=== PATIENT | female | born 1935 | race Caucasian/White ===

== ENCOUNTER 2025-04-18 15:58 | Inpatient (IN) | payer OTHER, SELFPAY ==
[2025-04-18 11:00] VITALS: BP 128/68
--- NOTE | 2025-04-18 12:37 | ED.GENMED ---
History of Present Illness
General
Chief Complaint: Abdominal Pain
Time Seen by Provider: 04/18/25 12:26
History of Present Illness
History of Present Illness:
89-year-old female with history of colorectal cancer status post subtotal colectomy presents to the emergency department for evaluation of generalized abdominal pain and vomiting beginning last night. Unable to tolerate p.o. fluids and feels dizzy.
Pain is minimal at this time. No diarrhea. Other abdominal surgery includes cholecystectomy
Review of Systems
Review of Systems
Allergies reviewed?: Yes
All Other Systems: ROS reviewed and negative except as documented in HPI and ROS
Phy Exam
Physical Exam
Physical Exam:
GEN: Well appearing, NAD, WDWN
HEENT: Oral mucosa moist, no scleral icterus
Cardiac: Regular rate
Lung: No respiratory distress, no tachypnea
Abdomen: Soft, mild right lower quadrant tenderness, no rigidity or peritoneal signs
MSK: No gross deformity or injuries
Skin: Good color, no pallor or jaundice, no rashes
Neuro: AO x3, moves all extremities freely
Psych: Calm, cooperative
Course
Orders/Labs/Results
Orders:
Orders
04/18/25 12:35
CT Abd/Pel (IV only)-DH only Urgent
Comment:
Reason For Exam: epigastric pain/vomiting
0.9% Sodium Chloride 1000 ml [Nss] 1,000 ml IV BOLUS
Ondansetron Injectable [Zofran] 4 mg IV NOW STA
04/18/25 12:48
Complete Blood Count/With Diff Urgent
Comprehensive Metabolic Panel Urgent
Lipase Urgent
04/18/25 14:34
HYDROmorphone [Dilaudid] 0.25 mg IV NOW STA
04/18/25 15:40
Admit/Transfer Patient As Directed
Co-Sign Provider:
Level of Care: Inpatient admission
Assign to:: Medical/Surgical
Physician / Group: Chela
Diagnosis: Small Bowel Obstruction
Reason for Hospitalization: Small Bowel Obstruction
Expected length of stay greater than two midnights?: Yes
ELOS- Estimated Length of Stay in days: 3
I certify the patient meets the requirements for IP care: Yes
04/18/25 15:41
PRN Pain Medication Management As Directed
May give lesser potent ordered pain med per pt: Yes
preference::
Protocol:: Medication orders for pain may be administered in a
manner that supports deferring to patient preference
when the pt is:
- Requesting an ordered lesser potent pain medication.
Least to most potent pain medications are defined
as: acetaminophen < NSAID < tramadol < opioids
(morphine, oxycodone, hydromorphone).
- Requesting a lesser dose of the same medication IF
ORDERED.
- Requesting a less intrusive route of administration
if both routes are prescribed by the provider (PO <
IV).
04/18/25 15:43
Code Status As Directed
Resuscitation Status: Full Code
04/18/25 15:46
ECG [Electrocardiogram (*1)] Routine
Reason for Study: QTc Monitoring
Abnormal Lab Results
04/18/25
12:48
WBC 18.2 H 10^3/uL
(4.8-10.8)
Abs Immat Gran (auto) 0.1 H 10^3/uL
(0-0.05)
Absolute Neuts (auto) 15.7 H 10^3/uL
(1.4-6.5)
Absolute Lymphs (auto) 0.9 L 10^3/uL
(1.2-3.4)
Absolute Monos (auto) 1.5 H 10^3/uL
(0.1-0.6)
Neutrophils % 86.2 H %
(42.2-75.2)
Lymphocytes % 4.9 L %
(20.5-51.1)
BUN 30 H mg/dl
(7-17)
Glucose 138 H mg/dl
(70-99)
04/18/25 12:48
04/18/25 12:48
Vital Signs
Initial and Last Documented VS:
Initial Vital Signs
Temp Pulse Resp BP Pulse Ox
98.6 F 90 16 128/68 97
04/18/25 11:00 04/18/25 11:00 04/18/25 11:00 04/18/25 11:00 04/18/25 11:00
Last Documented Vital Signs
Temp Pulse Resp BP Pulse Ox
98.6 F 90 16 128/68 97
04/18/25 11:00 04/18/25 11:00 04/18/25 11:00 04/18/25 11:00 04/18/25 12:38
MDM/Problems Addressed
MDM/Problems Addressed:
Imaging identified small bowel obstruction. Patient has had this in the past and states that she does not want an NG tube thus will treat with IV fluids and bowel rest, admit to the hospital for further management
*Pulse Oximetry
SaO2: 97
Oxygen Mode of Delivery: Room air
Patient hypoxic: no
*Critical Care Note
Total Time (30-74mins, 75-104mins- exclusive of procedures): Not Applicable
ED Attending Note
-
Portions of this chart may have been created with voice recognition software.� Occasional wrong word or��sound alike� substitutions may have occurred due to the inherent limitations of voice recognition software.
Discharge Plan
Departure
Patient Disposition: Admit
Date of Disposition: 04/18/25
Time of Disposition: 15:18
Admit to: Med/Surg
Presentation/result/management discussed w/ accepting MD/DO: Hospitalist
Discharge Problem:
Complete small bowel obstruction
Interventions
Interventions:
*General Assessment Last Done: 04/18/25 10:52
*Neglect/Abuse Screening Last Done: 04/18/25 10:52
*ED- Fall Risk Assessment Last Done: 04/18/25 10:52
LV-Uldnom-Ymzbcvvzjh Assessment Last Done: 04/18/25 10:52
[2025-04-18] MEDS: NSS 1000 IV (12:49)
[2025-04-18 13:04] LABS: Hematocrit 40.7 % (37.0-47.0); Hemoglobin 13.5 g/dL (12.0-16.0); Mean Corp Hgb Conc. 33.2 g/dL (33.0-37.0); Mean Corpuscular Volume 85.0 fL (81.0-99.0); Nucleated Red Blood Cells % 0 %; Platelet Count 348 10^3/uL (130-400); Red Cell Dist. Width 13.8 % (11.5-14.5)
[2025-04-18 13:16] LABS: ALT (SGPT) 25 U/L (0-35); AST (SGOT) 31 U/L (14-36); Albumin 4.4 g/dl (3.5-5.0); Alkaline Phosphatase 96 U/L (38-126); Blood Urea Nitrogen 30 mg/dl (7-17); Calcium 9.8 mg/dl (8.4-10.2); Carbon Dioxide 27 mmol/L (22-30); Chloride 102 mmol/L (98-107); Glucose 138 mg/dl (70-99); Lipase 66 U/L (23-300); Potassium 4.4 mmol/L (3.5-5.1); Sodium 138 mmol/L (135-145); Total Protein 7.2 g/dl (6.3-8.2); eGFR > 60.00
[2025-04-18 15:00] VITALS: BP 152/71
[2025-04-18] MEDS: DILAUDID 0.25 MG IV (15:16)
--- NOTE | 2025-04-18 15:27 | HPS.HSE ---
Family Physician
-
Family Physician: Peri Gurrola
Chief Complaint
-
Abdominal Pain and Vomiting
History of Present Illness
Patient is an 89 y/o female past medical history of hypertension, hyperlipidemia, dementia and colorectal cancer s/p colon resection chemotherapy and radiaiton who presents with abdominal pain. Patient developed abdominal pain and vomiting last
night. Patient was unable to tolerate oral fluid this morning and reports associated dizziness. Family at bedside reports a prior episode of small bowel obstruction.
Medical History
Past Medical History
Past Medical History: Reports Other
Additional Past Medical History:
Essential Hypertension
Hyperlipidemia
Dementia / Short-Term Memory Impairment
Colorectal Cancer
Past Surgical History: Reports Other
Additional Past Surgical History:
Colon Resection
Cholecystectomy
Appendectomy
Social History
Tobacco: Non-smoker
Alcohol: None
Living: With Family
Family History
Family History: Not pertinent
Allergies / Home Medications
Allergies reflects when Allergies were last updated in [employer].
Home Medications with original date entered in [employer]
Allergy/Medication List:
Allergies
Allergy/AdvReac Type Severity Reaction Status Date / Time
oxycodone Allergy Nausea / Verified 04/18/25 11:00
Vomiting
Home Medications
acetaminophen 650 mg tablet,extended release (Tylenol 8 Hour) 1,300 mg PO Q8HPRN PRN MILD PAIN 04/18/25
aspirin 81 mg tablet,delayed release 81 mg PO MOWEFR 04/18/25
calcium carbonate (Tums) 200 mg PO QIDPRN PRN GERD 04/18/25
cholecalciferol (vitamin D3) 50 mcg (2,000 unit) tablet (Vitamin D3) 50 mcg PO DAILY 04/18/25
donepezil 10 mg tablet 10 mg PO HS 04/18/25
losartan 25 mg tablet 25 mg PO BID 04/18/25
magnesium L-threonate 48 mg magnesium (667 mg) capsule 96 mg PO DAILY 04/18/25
rosuvastatin 5 mg tablet (Crestor) 5 mg PO TUTHSA 04/18/25
Review of Systems
-
Unable to obtain full review of systems at this time due to: Language Barrier
Physical Exam
Vital Signs
Vital Signs
Temp Pulse Resp BP Pulse Ox
98.6 F 90 16 128/68 97
04/18/25 11:00 04/18/25 11:00 04/18/25 11:00 04/18/25 11:00 04/18/25 12:38
Physical Exam
General: Comfortable and Conversant
HEENT: Anicteric and Moist mucous membranes
Respiratory: Clear and Non Labored Respirations
Cardiac: S1/S2 and Regular Rhythm
GI: Soft and Other (Hypoactive bowel sounds; Tenderness to palpation on the left without rebound or guarding)
Rectal: Deferred by Provider
Genito-urinary: Clear Urine
Musculoskeletal: No Clubbing, No Cyanosis and No Edema
Skin: Warm and Dry
Neuro: Awake, Alert and Nonfocal/grossly intact
Psych: Calm
Laboratory Results
-
04/18/25 12:48
04/18/25 12:48
Laboratory Results
Total Bilirubin 0.7 mg/dl (0.2-1.3) 04/18/25 12:48
AST 31 U/L (14-36) 04/18/25 12:48
ALT 25 U/L (0-35) 04/18/25 12:48
Alkaline Phosphatase 96 U/L (38-126) 04/18/25 12:48
Lipase 66 U/L (23-300) 04/18/25 12:48
Data Reviewed
-
CT Scan: Report Reviewed by me
Lab Data: Labs Reviewed by me
Impression/Plan
-
Small Bowel Obstruction, likely secondary to adhesions from prior surgery
-Consult General Surgery
-Continue NPO/IVFs - Patient refused NG Tube
-Continue Zofran prn Nausea
-Continue Acetaminophen and Morphine prn Pain
Essential Hypertension
-Resume losartan when able to tolerate oral meds
Hyperlipidemia
-Resume Crestor when able to tolerate oral meds
Dementia / Short-Term Memory Impairment
-Resume donepezil when able to tolerate oral meds
-Monitor for mood/behavior changes during hospitalization
DVT proph: Lovenox
Code Status: Full Code
--- NOTE | 2025-04-18 15:41 | W.PN.UPDATE ---
Update Note
Progress Note Update
This is an addendum to the H&P written by Ivory Veronica on 04/18/2025. �Patient seen and examined independently with PA.
89-year-old female past medical history of colorectal cancer status post subtotal colectomy, cholecystectomy, prior appendectomy, hypertension, hyperlipidemia, vertigo, presented for abdominal pain and vomiting and dizziness.
Labs show leukocytosis.
CT abdomen pelvis shows small bowel obstruction with multiple fluid-filled dilated mid to distal small bowel loops and several decompressed/angulated loops of bowel within the distal ileum at the site of transition likely secondary to adhesions.
�There is small amount of fluid within the pelvis and mild to moderate mesenteric edema. �No pneumatosis or portal venous gas.
Patient with acute small bowel obstruction.
NPO. �IV fluids. �Patient refused NG tube. �General surgery consulted.
[2025-04-18 16:00] VITALS: BP 110/89
[2025-04-18 17:00] VITALS: BP 158/72
--- NOTE | 2025-04-18 18:21 | CON.GS ---
Consultation
-
Date/Time Consultation Performed: 04/18/25
Requesting Provider: Glenys
Performing Provider: Juan
Reason for Consultation: SBO
Medical History
-
Chief Complaint: Abd pain, n/v
History of Present Illness:
89F Puerto [place]ican speaker with 2 day hx of abd pain, reflux, progressive nausea and bilious vomiting. Last emesis today at around 2PM. She has been eating cherries the last few days. Hx of CRC s/p MIS resection with adjuvant chemo XRT at [place]. Prior to
2019 was admitted to [facility] with SBO managed non-op successfully. Denies f/c. Reports passing small flatus. Unsure last BM. C/o reflux type burning retrosternal pain. Mild dementia, daughter translates and helps with history
Past Medical History
Past Medical History: Other (Essential Hypertension Hyperlipidemia Dementia / Short-Term Memory Impairment Colorectal Cancer )
Past Surgical History: Other (Colon Resection Cholecystectomy Appendectomy)
Social History
Tobacco: Non-Smoker
Alcohol: None
Living: With Family
Family History
Family History: Reviewed & Noncontributory
Allergies / Home Medications
Allergy/AdvReac Type Severity Reaction Status Date / Time
oxycodone Allergy Nausea / Verified 04/18/25 11:00
Vomiting
�Medication �Instructions �Recorded �Confirmed �Type
acetaminophen 650 mg 1,300 mg PO Q8HPRN PRN MILD PAIN 04/18/25 04/18/25 History
tablet,extended release (Tylenol 8
Hour)
aspirin 81 mg tablet,delayed 81 mg PO MOWEFR 04/18/25 04/18/25 History
release
calcium carbonate (Tums) 200 mg PO QIDPRN PRN GERD 04/18/25 04/18/25 History
cholecalciferol (vitamin D3) 50 50 mcg PO DAILY 04/18/25 04/18/25 History
mcg (2,000 unit) tablet (Vitamin
D3)
donepezil 10 mg tablet 10 mg PO HS 04/18/25 04/18/25 History
losartan 25 mg tablet 25 mg PO BID 04/18/25 04/18/25 History
magnesium L-threonate 48 mg 96 mg PO DAILY 04/18/25 04/18/25 History
magnesium (667 mg) capsule
rosuvastatin 5 mg tablet (Crestor) 5 mg PO TUTHSA 04/18/25 04/18/25 History
Review of Systems
-
A 10 point review of systems was completed, and was negative except as per HPI.
Physical Exam
Vital Signs
Temp Pulse Resp BP Pulse Ox
98.6 F 90 16 128/68 97
04/18/25 11:00 04/18/25 11:00 04/18/25 11:00 04/18/25 11:00 04/18/25 12:38
04/17/25 04/18/25 04/19/25
06:59 06:59 06:59
Actual Weight 65.3 kg
Lab Results
04/18/25 12:48
04/18/25 12:48
WBC 18.2 10^3/uL (4.8-10.8) H 04/18/25 12:48
Hgb 13.5 g/dL (12.0-16.0) 04/18/25 12:48
Hct 40.7 % (37.0-47.0) 04/18/25 12:48
Plt Count 348 10^3/uL (130-400) 04/18/25 12:48
Abs Immat Gran (auto) 0.1 10^3/uL (0-0.05) H 04/18/25 12:48
Neutrophils % 86.2 % (42.2-75.2) H 04/18/25 12:48
Physical Exam
General: Well Developed, Well Nourished and No Apparent Distress
GI: Soft, Non Distended and Tender (mild ttp worst at RLQ, less to LLQ)
Skin: Warm and Dry
Neuro: AO x 3
Psych: Calm
Data Reviewed
-
CT Scan: Image Personally Visualized and interpreted, Report Reviewed by me, Discussed with Patient and Discussed with Family
Labs: Labs Reviewed by me, Discussed with Patient and Discussed with Family
Assessment / Plan
-
89F with SBO likely 2/2 adhesions in setting of dietary indiscretion
AFVSS, mild ttp mostly to RLQ, soft belly
WBC 18K
CT with dilated proximal sb loops, decompressed distal sb in the pelvis tracking to cecum, stool in cecum, no pneumatosis, no PV gas, no free air
Refusing NGT 2/2 bad experience prior SBO admission years ago at [facility]
Plan:
Admit to Hospitalist
Rec NGT, pt refused, if vomiting recurs would strongly recommend
IVF
NPO
Ambulate
DVT ppx
PRN pain meds / antiemetics
IV PPI
[2025-04-18 20:21] VITALS: BP 178/91
--- NOTE | 2025-04-18 21:00 | PTCARENOTE ---
Pt transported from ED to 3W via stretcher. Pt was a pullover from stretcher to bed, however is able to ambulate w/ 1 assist. Pt AAOX3 (hx of dementia) can be forgetful/confused @ baseline. Pt south sudanese speaking, daughter at bedside translating, pt
oriented to room, call proctor within reach. Vitals stable, pt pleasant and cooperative.
[2025-04-18] MEDS: LOVENOX 40 MG SC (21:29)
[2025-04-18] MEDS: D5/0.45%NSS with KCL 10 MEQ 1000 IV (21:30)
[2025-04-18] MEDS: NSS (PRESERVATIVE FREE) 10 ML IV (21:32)
[2025-04-18] MEDS: PROTONIX IV 40 MG IV (21:32)
[2025-04-18] MEDS: ZOFRAN 4 MG IV (21:39)
[2025-04-18] MEDS: MORPHINE SULFATE 1 MG IV (21:40)
[2025-04-18 22:40] VITALS: BP 140/69
[2025-04-19] MEDS: MORPHINE SULFATE 1 MG IV (06:19)
[2025-04-19 07:02] LABS: Hematocrit 36.9 % (37.0-47.0); Hemoglobin 12.5 g/dL (12.0-16.0); Mean Corp Hgb Conc. 33.9 g/dL (33.0-37.0); Mean Corpuscular Volume 85.4 fL (81.0-99.0); Platelet Count 331 10^3/uL (130-400); Red Cell Dist. Width 14.0 % (11.5-14.5)
[2025-04-19 07:17] LABS: Blood Urea Nitrogen 28 mg/dl (7-17); Calcium 8.8 mg/dl (8.4-10.2); Carbon Dioxide 26 mmol/L (22-30); Chloride 106 mmol/L (98-107); Estimated Creatinine Clearance 56 ml/min; Glucose 127 mg/dl (70-99); Magnesium 2.3 mg/dl (1.6-2.3); Potassium 4.2 mmol/L (3.5-5.1); Sodium 136 mmol/L (135-145); eGFR > 60.00
[2025-04-19 07:30] VITALS: BP 144/60
--- NOTE | 2025-04-19 07:48 | W.PN.HOSP.TC ---
Today's Communication/Plan
-
see PN
Assessment / Plan
Assessment / Plan
89yo F witgh PMHx of dementia, HLD, ASCVD, Hx of abd surgery 2/2 colon CA resection and recurrent SBO, last one few years ago came with abd dyscomphost and found SBO
A/P:
#SBO
NPO and advance diet when resolved
IVF
Follow electrolytes
CT: distal ileum - adhesions related obstruction
GEnSx consult
#Dementia, unspecified
frequent reorientation
#EssentIal HTN
Use IV meds while NPI, restart home meds when possible
#HLD
#ASCVD
no stents as per daughter, no Hx of ACS
hold meds
#leukocytosis on admission
resolved
most liekyl stress related
DVT ppx SCDs
Full code
I have spent at least 58min reviewing chart, test results, communication with family and providing direct patient care
Anticipated Discharge: > 48 hours
Subjective/Interval History
-
Date of Service: April 19, 2025
Objective Data
-
Labs:
Laboratory Results
04/19/25
06:32
WBC 10.0
Hgb 12.5
Hct 36.9 L
Plt Count 331
Sodium 136
Potassium 4.2
Chloride 106
Carbon Dioxide 26
BUN 28 H
Creatinine 0.6
Glucose 127 H
Calcium 8.8
Vital Signs:
Vital Signs
Temp Pulse Resp BP Pulse Ox
99.2 F 81 14 140/69 98
04/18/25 22:40 04/18/25 22:40 04/18/25 22:40 04/18/25 22:40 04/18/25 22:40
Review of Systems
-
History Source: Patient
All other systems: Reviewed and negative
Abdomen/GI: Reports Nausea
Physical Exam
-
General: No Apparent Distress
HEENT: Normocephalic
Respiratory: Clear to Auscultation
Cardiac: Regular Rhythm
GI: Soft, Nontender and Nondistended
Musculoskeletal: No Clubbing, No Cyanosis and No Edema
Neuro: Awake, Alert, Oriented and AO x 3
Psych: Calm and Apparent Dementia
[2025-04-19] MEDS: D5/0.45%NACL 500 IV ×3 (08:00→21:20)
[2025-04-19] MEDS: PROTONIX IV 40 MG IV (09:25)
[2025-04-19] MEDS: NSS (PRESERVATIVE FREE) 10 ML IV (09:25)
[2025-04-19] MEDS: DILAUDID 0.5 MG IV (10:20)
--- NOTE | 2025-04-19 12:04 | W.PN.GS2 ---
Today's Communication / Plan
-
NPO
Assessment / Plan
-
89 yo female with h/o dementia, rasta, prior MIS resection with adjuvant chemo XRT at [place], SBO in 2019 which resolved with nonoperative measures presenting with SBO likely secondary to adhesions
AFVSS
Leukocytosis resolved
Not yet passing flatus, pain persists
KUB with persistent obstruction, SB distention does not appear worsened
Plan:
Keep NPO
Refusing NGT, would likely not tolerate well
Checked KUB today
Analgesic dosing increased
Antiemetics prn
IVF as per primary team
Will continue to follow for improvement with nonoperative measures (fluids, analgesics, bowel rest)
Subjective Data
-
Date of Service: April 19, 2025
Pt seen and examined at bedside with daughter present. C/o pain, uncomfortable appearing. Confusion at baseline. anxious. Denies nausea currently but did have some overnight. Not passing flatus.
Objective Data
-
Intake and Output
04/18/25 04/19/25 04/20/25
06:59 06:59 06:59
Other:
Number of approximated MODERATE 2
amounts of urine
Vital Signs
Temp Pulse Resp BP Pulse Ox
98.3 F 81 18 144/60 96
04/19/25 07:30 04/19/25 07:30 04/19/25 07:30 04/19/25 07:30 04/19/25 07:30
Lab Results
04/19/25 06:32
04/19/25 06:32
Calcium 8.8 mg/dl (8.4-10.2) 04/19/25 06:32
Magnesium 2.3 mg/dl (1.6-2.3) 04/19/25 06:32
Total Bilirubin 0.7 mg/dl (0.2-1.3) 04/18/25 12:48
AST 31 U/L (14-36) 04/18/25 12:48
ALT 25 U/L (0-35) 04/18/25 12:48
Alkaline Phosphatase 96 U/L (38-126) 04/18/25 12:48
Total Protein 7.2 g/dl (6.3-8.2) 04/18/25 12:48
Albumin 4.4 g/dl (3.5-5.0) 04/18/25 12:48
Physical Exam
-
Uncomfortable appearing, anxious
Abd softly distended, generalized tenderness L>R, CL[employer]ER
--- NOTE | 2025-04-19 13:12 | CM ---
Patient seen at bedside with daughter Radha
IA completed, via daughter (patient Guamanian speaking)
Dx: SBO
NPO, IVF
PMH: dementia, rasta, prior MIS resection with adjuvant chemo XRT at [facility] in 2019
Patient lives with her daughter & her family in a 2 story home, 1st floor set up with bedroom/full bathroom
PLOF: Independent, daughter states without assistive device
DME: Walker, cane, shower chair
Daughter states she is a paid caregiver through [employer] , she states she works there.
PCP: Peri Gurrola
Pharmacy: [facility]
PLAN: anticipate home, with daughter as caregiver through [employer] when stable
[2025-04-19 15:00] VITALS: BP 142/67
[2025-04-19] MEDS: LOVENOX 40 MG SC (17:46)
[2025-04-19] MEDS: DILAUDID 0.25 MG IV (21:29)
[2025-04-19] MEDS: ZOFRAN 4 MG IV (21:30)
[2025-04-19 23:00] VITALS: BP 139/52
[2025-04-20] MEDS: D5/0.45%NACL 500 IV ×2 (03:51→11:05)
[2025-04-20 07:13] VITALS: BP 155/68
[2025-04-20 07:51] LABS: Blood Urea Nitrogen 16 mg/dl (7-17); Calcium 7.8 mg/dl (8.4-10.2); Carbon Dioxide 26 mmol/L (22-30); Chloride 108 mmol/L (98-107); Estimated Creatinine Clearance 56 ml/min; Glucose 107 mg/dl (70-99); Magnesium 2.1 mg/dl (1.6-2.3); Potassium 3.7 mmol/L (3.5-5.1); Sodium 136 mmol/L (135-145); eGFR > 60.00
[2025-04-20] MEDS: NSS (PRESERVATIVE FREE) 10 ML IV (08:32)
[2025-04-20] MEDS: PROTONIX IV 40 MG IV (08:32)
[2025-04-20] MEDS: CALCIUM GLUCONATE 100 IV (08:57)
--- NOTE | 2025-04-20 10:35 | W.PN.GS2 ---
Today's Communication / Plan
-
NGT today.
Asked nursing to document if any bowel function.
Assessment / Plan
-
89 yo female with h/o dementia, rasta, prior MIS resection with adjuvant chemo XRT at [place], SBO in 2019 which resolved with nonoperative measures presenting with SBO likely secondary to adhesions
AFVSS
Leukocytosis resolved
Not yet passing flatus, pain persists but improved.
KUB with dilated small bowel loops, no free air (x-rays reviewed).
Plan:
More receptive to an NGT today
No indication for acute intervention. Might need repeat CT at some point as she is difficult to gauge given her dementia.
Last analgesic dose last night
Antiemetics prn
IVF as per primary team
Will continue to follow for improvement with nonoperative measures (fluids, analgesics, bowel rest.NGT)
Subjective Data
-
Date of Service: April 20, 2025
Less pain today. No bowel function recorded.
Objective Data
-
Intake and Output
04/19/25 04/20/25 04/21/25
06:59 06:59 06:59
Intake Total 900 / 900
Balance 900 / 900
Intake:
Oral fluids 0 / 0
IV fluids (Total) 900 / 900
Other:
Number of approximated MODERATE 2
amounts of urine
Number of approximated LARGE 7 1
amounts of urine
Vital Signs
Temp Pulse Resp BP Pulse Ox
98.1 F 69 18 155/68 96
04/20/25 07:13 04/20/25 07:13 04/20/25 07:13 04/20/25 07:13 04/20/25 07:13
Lab Results
04/19/25 06:32
04/20/25 06:46
Calcium 7.8 mg/dl (8.4-10.2) L 04/20/25 06:46
Phosphorus 2.8 mg/dl (2.5-4.5) 04/20/25 06:46
Magnesium 2.1 mg/dl (1.6-2.3) 04/20/25 06:46
Total Bilirubin 0.7 mg/dl (0.2-1.3) 04/18/25 12:48
AST 31 U/L (14-36) 04/18/25 12:48
ALT 25 U/L (0-35) 04/18/25 12:48
Alkaline Phosphatase 96 U/L (38-126) 04/18/25 12:48
Total Protein 7.2 g/dl (6.3-8.2) 04/18/25 12:48
Albumin 4.4 g/dl (3.5-5.0) 04/18/25 12:48
Physical Exam
-
NAD
Abdomen softly distended with bowel sounds. Nontender.
--- NOTE | 2025-04-20 11:20 | CM ---
Patient chart reviewed
NGT today
PLAN: anticipate home, with daughter as caregiver through [facility] when stable
--- NOTE | 2025-04-20 12:00 | W.PN.HOSP.TC ---
Addendum entered and electronically signed by Sascha Krishnan MD 04/20/25 12:05:
attempted NG tube placement - patient did not tolerate
Original Note:
Today's Communication/Plan
-
no BS
conflicting info on BM from RN, but patient did not report any
Replete Ca, follow electrolyts in AM
rest of the mgmt as per surgery
Assessment / Plan
Assessment / Plan
89yo F witgh PMHx of dementia, HLD, ASCVD, Hx of abd surgery 2/2 colon CA resection and recurrent SBO, last one few years ago came with abd dyscomphost and found SBO
A/P:
#SBO
NPO and advance diet when resolved
IVF
Follow electrolytes
CT: distal ileum - adhesions related obstruction
GEnSx consult
#Dementia, unspecified
frequent reorientation
#Hypocalcemia
replete
#Essential HTN
Use IV meds while NPI, restart home meds when possible
#HLD
#ASCVD
no stents as per daughter, no Hx of ACS
hold meds
#leukocytosis on admission
resolved
most liekyl stress related
DVT ppx SCDs
Full code
I have spent at least 51min reviewing chart, test results, communication with family and providing direct patient care
Anticipated Discharge: > 48 hours
Subjective/Interval History
-
Date of Service: April 20, 2025
Objective Data
-
Labs:
Laboratory Results
04/20/25
06:46
Sodium 136
Potassium 3.7
Chloride 108 H
Carbon Dioxide 26
BUN 16
Creatinine 0.6
Glucose 107 H
Calcium 7.8 L
Vital Signs:
Vital Signs
Temp Pulse Resp BP Pulse Ox
98.1 F 69 18 155/68 96
04/20/25 07:13 04/20/25 07:13 04/20/25 07:13 04/20/25 07:13 04/20/25 07:13
I&O
04/19/25 04/20/25 04/21/25
06:59 06:59 06:59
Intake Total 900 / 900
Balance 900 / 900
Review of Systems
-
History Source: Patient
All other systems: Reviewed and negative
Physical Exam
-
General: Comfortable
HEENT: Normocephalic
Respiratory: Clear to Auscultation
Cardiac: Regular Rhythm
GI: Soft, Nontender and Nondistended
Musculoskeletal: No Clubbing, No Cyanosis and No Edema
Neuro: Awake, Alert and Oriented
Psych: Calm and Apparent Dementia
[2025-04-20 14:55] VITALS: BP 151/69
--- NOTE | 2025-04-20 15:37 | PTCARENOTE ---
During shift Pt ordered NGT for decompression. Communicated with Pt via zone manager (Pt is Cambodian speaking) regarding order for NGT, why it is needed, and how it will be placed. Pt flat out refused NGT placement, stating concerns with using the
bathroom if it is placed, and with moving around in general. She stated that she wants to speak with her daughter. TT sent to Dr Krishnan to update on patient's statements and concerns. Call placed to daughter to update as well. Daughter Radha in to
visit and eager to walk patient around unit. Walked with patient around unit and to bathroom. Radha reported that the patient had a small soft bowel movement. Documentation on the worklist from previous shift also reports that patient had a small
bowel movement during that shift. Communicated with Radha regarding NGT placement for patient. Radha stated wanting pt to walk around and try to go to the bathroom first and to 'hold off' on NGT for now. Pt denies pain/discomfort, Continues on IVF
and being strict NPO, Call proctor within reach.
[2025-04-20] MEDS: LOVENOX 40 MG SC (18:16)
[2025-04-20 23:00] VITALS: BP 161/62
[2025-04-21 07:04] LABS: Blood Urea Nitrogen 12 mg/dl (7-17); Calcium 8.4 mg/dl (8.4-10.2); Carbon Dioxide 27 mmol/L (22-30); Chloride 106 mmol/L (98-107); Estimated Creatinine Clearance 56 ml/min; Glucose 84 mg/dl (70-99); Magnesium 2.1 mg/dl (1.6-2.3); Potassium 3.6 mmol/L (3.5-5.1); Sodium 136 mmol/L (135-145); eGFR > 60.00
[2025-04-21 07:06] VITALS: BP 162/72
[2025-04-21] MEDS: NSS (PRESERVATIVE FREE) 10 ML IV (08:01)
[2025-04-21] MEDS: PROTONIX IV 40 MG IV (08:01)
[2025-04-21 08:55] VITALS: BMI 26.4
--- NOTE | 2025-04-21 10:26 | W.PN.GS2 ---
Today's Communication / Plan
-
-- SBFT
Assessment / Plan
-
89 yo female with h/o dementia, rasta, prior MIS resection with adjuvant chemo XRT at [facility], SBO in 2019 which resolved with nonoperative measures presenting with SBO likely secondary to adhesions
KUB with dilated small bowel loops, no free air (x-rays reviewed).
AFVSS
Leukocytosis resolved
Clinical improvement with reports of passing stool. Given the difficulties in clinical evaluation given language barrier and dementia we will plan on a contrast study to confirm resolution of her SBO prior to dietary advancement. Plan for SBFT
today.
Plan:
-- SBFT
-- OOB/ambulate
-- Minimize narcotics, correct lytes
Subjective Data
-
Date of Service: April 21, 2025
Language line currently not working. Nursing reports improved symptoms with less abdominal pain. No reports of nausea or vomiting. Nursing reports several loose stools.
Objective Data
-
Intake and Output
04/20/25 04/21/25 04/22/25
06:59 06:59 06:59
Intake Total 900 / 900
Balance 900 / 900
Intake:
Oral fluids 0 / 0
IV fluids (Total) 900 / 900
Other:
Number of approximated SMALL 3
amounts of urine
Number of approximated LARGE 7 1
amounts of urine
Vital Signs
Temp Pulse Resp BP Pulse Ox
97.8 F 58 16 162/72 95
04/21/25 07:06 04/21/25 07:06 04/21/25 07:06 04/21/25 07:06 04/21/25 07:30
Lab Results
04/19/25 06:32
04/21/25 06:19
Calcium 8.4 mg/dl (8.4-10.2) 04/21/25 06:19
Phosphorus 3.3 mg/dl (2.5-4.5) 04/21/25 06:19
Magnesium 2.1 mg/dl (1.6-2.3) 04/21/25 06:19
Total Bilirubin 0.7 mg/dl (0.2-1.3) 04/18/25 12:48
AST 31 U/L (14-36) 04/18/25 12:48
ALT 25 U/L (0-35) 04/18/25 12:48
Alkaline Phosphatase 96 U/L (38-126) 04/18/25 12:48
Total Protein 7.2 g/dl (6.3-8.2) 04/18/25 12:48
Albumin 4.4 g/dl (3.5-5.0) 04/18/25 12:48
Physical Exam
-
Gen: NAD
Abd: soft, NT/ND, non-peritoneal, prior lower midline and periumbilical incisions well healed
Patient has a wagner catheter: No
Patient has a central line: No
[2025-04-21] MEDS: NSS with KCL 20 MEQ 1000 IV (14:40)
[2025-04-21 14:56] VITALS: BP 158/69
--- NOTE | 2025-04-21 15:27 | CM ---
Chart reviewed and will follow with patient progress notes, plan is to home with daughter when stable, patient has home care services from [facility].
[facility] [facility] ,.
Plan; Home with daughter and [facility] care.
--- NOTE | 2025-04-21 15:55 | W.PN.HOSP.TC ---
Today's Communication/Plan
-
Reports improvement with resolution of abdominal pain and nausea.
Hungry.
Small bowel follow-through with nonobstructive pattern.
Consider clear liquid diet
Assessment / Plan
Assessment / Plan
89yo F witgh PMHx of dementia, HLD, ASCVD, Hx of abd surgery 2/2 colon CA resection and recurrent SBO, last one few years ago came with abd dyscomphost and found SBO
A/P:
#SBO
CT: distal ileum - adhesions related obstruction
Surgery input appreciated.
Patient reports improvement of abdominal pain and nausea
Small bowel follow-through with no obstruction
Consider clear liquid diet
#Dementia, unspecified
frequent reorientation
#Hypocalcemia
replete
#Essential HTN
Use IV meds while NPI, restart home meds when possible
#HLD
#ASCVD
no stents as per daughter, no Hx of ACS
hold meds
#leukocytosis on admission
resolved
most liekyl stress related
DVT ppx SCDs
Full code
Anticipated Discharge: 24 - 48 hours
Subjective/Interval History
-
Date of Service: April 21, 2025
Objective Data
-
Labs:
Laboratory Results
04/21/25
06:19
Sodium 136
Potassium 3.6
Chloride 106
Carbon Dioxide 27
BUN 12
Creatinine 0.5 L
Glucose 84
Calcium 8.4
Vital Signs:
Vital Signs
Temp Pulse Resp BP Pulse Ox
97.8 F 76 16 158/69 97
04/21/25 14:56 04/21/25 14:56 04/21/25 14:56 04/21/25 14:56 04/21/25 14:56
I&O
04/20/25 04/21/25 04/22/25
06:59 06:59 06:59
Intake Total 900 / 900
Balance 900 / 900
Physical Exam
-
General: Well Developed and No Apparent Distress
HEENT: Normocephalic, Atraumatic and Moist Mucous Membranes
Respiratory: Clear to Auscultation
Cardiac: Regular Rhythm and S1/S2; Negative Murmur, Rub or Gallop
GI: Soft, Nontender, Nondistended and Normal Bowel Sounds; Negative Organomegaly
Rectal: Deferred by Provider
Musculoskeletal: No Clubbing, No Cyanosis and No Edema
Skin: Negative Rash
Neuro: Nonfocal/Grossly Intact
[2025-04-21] MEDS: LOVENOX 40 MG SC (17:07)
--- NOTE | 2025-04-21 22:00 | PTCARENOTE ---
Patient had 2 episodes of small amounts of pure liquid stool. MAK Pelayo notified. Vitals checked and stable, patient only Togolese speaking and confused, not sure if she is dizzy but patient is walking the same as before the diarrhea. Will
continue to monitor.
[2025-04-21 23:13] VITALS: BP 155/67
[2025-04-22 06:57] LABS: Hematocrit 35.8 % (37.0-47.0); Hemoglobin 11.8 g/dL (12.0-16.0); Mean Corp Hgb Conc. 33.0 g/dL (33.0-37.0); Mean Corpuscular Volume 86.7 fL (81.0-99.0); Nucleated Red Blood Cells % 0 %; Platelet Count 298 10^3/uL (130-400); Red Cell Dist. Width 13.3 % (11.5-14.5)
[2025-04-22 07:11] VITALS: BP 167/64
[2025-04-22 07:16] LABS: Blood Urea Nitrogen 12 mg/dl (7-17); Calcium 8.2 mg/dl (8.4-10.2); Carbon Dioxide 24 mmol/L (22-30); Chloride 106 mmol/L (98-107); Estimated Creatinine Clearance 56 ml/min; Glucose 69 mg/dl (70-99); Potassium 3.6 mmol/L (3.5-5.1); Sodium 136 mmol/L (135-145); eGFR > 60.00
[2025-04-22] MEDS: PROTONIX IV 40 MG IV (08:35)
[2025-04-22] MEDS: NSS (PRESERVATIVE FREE) 10 ML IV (08:36)
--- NOTE | 2025-04-22 09:03 | W.PN.GS2 ---
Addendum entered and electronically signed by Jose Roberto Cole MD 04/23/25 13:38:
Partial SBO
Original Note:
Today's Communication / Plan
-
-- Fulls, ADAT to LRD
Assessment / Plan
-
89 yo female with h/o dementia, rasta, prior MIS resection with adjuvant chemo XRT at [facility], SBO in 2019 which resolved with nonoperative measures presenting with SBO likely secondary to adhesions
KUB with dilated small bowel loops, no free air (x-rays reviewed).
SBFT with mild dilation, contrast progression into the colon
AFVSS
Leukocytosis resolved
Dietary advancement throughout the day. DC on LRD, dietary education provided.
Plan:
-- Fulls, ADAT to LRD
-- OOB/ambulate
-- Minimize narcotics, correct lytes
-- Dispo per Hospitalist
-- Call with questions or concerns
Subjective Data
-
Date of Service: April 22, 2025
No complaints. Denies any abdominal pain or discomfort. No nausea or vomiting. Passing flatus and stool. No fevers.
Objective Data
-
Intake and Output
04/21/25 04/22/25 04/23/25
06:59 06:59 06:59
Intake Total 20 / 20
Balance 20 / 20
Intake:
Oral fluids 20 / 20
Other:
Number of approximated SMALL 3 6
amounts of urine
Number of approximated MODERATE 4
amounts of urine
Number of approximated LARGE 1
amounts of urine
Number of unmeasured liquid
stools
Rectum 2
Vital Signs
Temp Pulse Resp BP Pulse Ox
98.2 F 69 17 167/64 96
04/22/25 07:11 04/22/25 07:11 04/22/25 07:11 04/22/25 07:11 04/22/25 07:11
Lab Results
04/22/25 06:22
04/22/25 06:22
Calcium 8.2 mg/dl (8.4-10.2) L 04/22/25 06:22
Phosphorus 3.3 mg/dl (2.5-4.5) 04/21/25 06:19
Magnesium 2.1 mg/dl (1.6-2.3) 04/21/25 06:19
Total Bilirubin 0.7 mg/dl (0.2-1.3) 04/18/25 12:48
AST 31 U/L (14-36) 04/18/25 12:48
ALT 25 U/L (0-35) 04/18/25 12:48
Alkaline Phosphatase 96 U/L (38-126) 04/18/25 12:48
Total Protein 7.2 g/dl (6.3-8.2) 04/18/25 12:48
Albumin 4.4 g/dl (3.5-5.0) 04/18/25 12:48
Physical Exam
-
Gen: NAD
Abd: soft, NT/ND, non-peritoneal, prior incisions well healed
Patient has a wagner catheter: No
Patient has a central line: No
--- NOTE | 2025-04-22 12:08 | PN.CDI ---
CDI
- -
CDI:
Physician Documentation Request
Admit Date: 04/18/25 15:58
Dear Doctor,
Please review the following and provide your response in the progress notes.
Clinical Indicators:
Dementia was documented
Pt admitted with SBO
Pt with History of Dementia.
RN's behavioral assessment from 04/19 through 04/22 ' Anxious/Forgetful at times'
If possible, please further clarify type of Dementia and any associated manifestations:
Dementia with Anxiety
Dementia with behavioral disturbances
Dementia without mood or behavioral disturbances
Other
Use of terms such as suspected, likely, concern for, or probable (associated with a specific diagnosis that is being evaluated, monitored, or treated as if it exists) are acceptable and can be coded in the inpatient setting, when documented at the
time of discharge.
Thank you,
Renetta Main RN, BSN
CDI Specialist
[place] [facility]
Please use your independent medical judgment in providing your response.
--- NOTE | 2025-04-22 14:28 | CM ---
Addendum entered by Yuly Gilliam 04/22/25 15:32:
patient discharge today
spoke with daughter Radha, will transport at 6pm
Interested in VN with [facility]
consult for VN
PLAN: home, [facility], daughter also caregiver through [employer] Fax #: [phone]
Original Note:
Patient seen at bedside
spoke with Shu from [employer] [facility] [phone]
daughter is paid caregiver through [employer]
PLAN: home, with daughter as caregiver through [employer] [facility] when stable
[employer] [facility] Fax #: [phone]
[2025-04-22 14:54] VITALS: BP 159/79
--- NOTE | 2025-04-22 15:24 | W.DS.TRANS ---
DC Summary - [employer]
-
Discharge Instructions:
Discharge Diagnosis/Procedures Small bowel obstruction
Diet Low Fiber
Instructions:
Stand-Alone Forms:
Changes to Home Medications: No
Discharge Medications:
DC Medications w/original date entered in [employer]
acetaminophen 650 mg tablet,extended release (Tylenol 8 Hour) 1,300 mg PO Q8HPRN PRN mild pain 04/18/25
aspirin 81 mg tablet,delayed release 81 mg PO MOWEFR Blood Clot Prevention/Tx 04/18/25
calcium carbonate (Tums) 200 mg PO QIDPRN PRN GERD 04/18/25
cholecalciferol (vitamin D3) 50 mcg (2,000 unit) tablet (Vitamin D3) 50 mcg PO DAILY Supplement 04/18/25
donepezil 10 mg tablet 10 mg PO HS memory/cognition 04/18/25
losartan 25 mg tablet 25 mg PO BID Blood Pressure 04/18/25
magnesium L-threonate 48 mg magnesium (667 mg) capsule 96 mg PO DAILY Supplement 04/18/25
rosuvastatin 5 mg tablet (Crestor) 5 mg PO TUTHSA High Cholesterol 04/18/25
Home Medication Changes
Pending Results: No
[2025-04-22 18:43] VITALS: BP 157/78
--- NOTE | 2025-04-23 09:31 | PN.CDI ---
CDI
- -
CDI:
Physician Documentation Request
Admit Date: 04/18/25 15:58
Dear Doctor Kelsey,
Please review the following and provide your response in the progress notes.
Clinical Indicators:
Pt admitted with small bowel likely secondary to adhesions.
04/18 CT Abd/Pelvis:1. Findings consistent with small bowel obstruction with multiple fluid filled/dilated mid to distal small bowel loops with several decompressed/angulated loops of bowel within the distal ileum at the site of transition, likely
secondary to adhesions. Small amount of fluid within the pelvis and mild to moderate mesenteric edema. No pneumatosis or portal venous gas.
Based on the above, could you clarify in the progress notes, the appropriate type of SBO , that supports the above abnormalities and additional evaluation, monitoring and/or treatment rendered:
Complete SBO
Partial SBO
Other
Unable to determine
Use of terms such as suspected, likely, concern for, or probable (associated with a specific diagnosis that is being evaluated, monitored, or treated as if it exists) are acceptable and can be coded in the inpatient setting, when documented at the
time of discharge.
Thank you,
Renetta Main RN, BSN
CDI Specialist
[place] [facility]
Please use your independent medical judgment in providing your response.
== END 2025-04-22 18:43 | disposition home health service (06) | DRG 390 ==
LOC: 3 WEST ACU 15:58
PROVIDERS: Internal Medicine; Physician Assistant; Physician Assistant Medical; ADMITTING PHYSICIAN Hospitalist; ATTENDING PHYSICIAN Internal Medicine; CONSULT PHYSICIAN Surgery; EMERGENCY PHYSICIAN Student in an Organized Health Care Education/Training Program; FAMILY PHYSICIAN Family Medicine
DX: K56.51 Intestinal adhesions [bands], with partial obstruction (principal); I10 Essential (primary) hypertension; E78.5 Hyperlipidemia, unspecified; F03.A0 Unspecified dementia, mild, without behavioral disturbance, psychotic disturbance, mood disturbance, and anxiety; D72.829 Elevated white blood cell count, unspecified; I25.10 Atherosclerotic heart disease of native coronary artery without angina pectoris; E83.51 Hypocalcemia; Z79.899 Other long term (current) drug therapy
CPT/HCPCS: 74018; 74177; 74250; 80048; 80053; 83690; 83735; 84100; 85025; 85027; 93005; 96361; 96374; 96375; 99284; J3480; Q9967